=== PATIENT | female | born 1975 | race African-American/Black ===

== ENCOUNTER 2018-09-08 04:09 | Emergency (ER) | payer BC ==
[2018-09-08 05:17] VITALS: BP 137/90; PULSE 92; TEMP 98.5; BMI 28.3
[2018-09-08] MEDS ORDERED: IBUPROFEN 600 MG TABLET (FP) PO ONE ×2 (05:36→05:47)
--- NOTE | 2018-09-08 05:36 | PDOC ---
History of Present Illness - General Chief Complaint: Cold Symptoms Stated Complaint: FLU LIKE SYMPTOMS Time Seen by Provider: 09/08/18 05:26 History Source: Patient - History of Present Illness Initial Comments: 09/08/18 05:39 42 year old with nasal congestion, throat pain, bodyaches, nausea x 3 days, denies fever, chills, abdominal pain, had one episode of diarrhea no pmhx Past History - Past Medical History Allergies/Adverse Reactions: Allergies Allergy/AdvReac Type Severity Reaction Status Date / Time Penicillins Allergy Verified 09/08/18 05:17 Home Medications: Ambulatory Orders Benzocaine/Menthol [Cepacol Sore Throat Lozenge] 1 each MM QID PRN #20 lozenge 09/08/18 Benzonatate [Tessalon Pearls -] 100 mg PO TID PRN #14 capsule 09/08/18 Fluticasone Prop 0.05% Nasal [Flonase -] 1 - 2 spray NS BID #1 spray.pump Ibuprofen 600 mg PO QID PRN #20 tablet 09/08/18 Mag Hydrox/Al Hydrox/Simeth [Mylanta Suspension -] 30 ml PO Q6H PRN #1 bottle - Suicide/Smoking/Psychosocial Hx Smoking History: Never smoked Have you smoked in the past 12 months: Yes Information on smoking cessation initiated: No Hx Alcohol Use: Yes Drug/Substance Use Hx: No *Physical Exam - Vital Signs Last Vital Signs Temp Pulse Resp BP Pulse Ox 98.5 F 92 H 19 137/90 99 09/08/18 04:09 09/08/18 04:09 09/08/18 04:09 09/08/18 04:09 09/08/18 04:09 Moderate Sedation - Procedure Monitoring Vital Signs: Procedure Monitoring Vital Signs Temperature 98.5 F 09/08/18 04:09 Pulse Rate 92 H 09/08/18 04:09 Respiratory Rate 19 09/08/18 04:09 Blood Pressure 137/90 09/08/18 04:09 O2 Sat by Pulse Oximetry (%) 99 09/08/18 04:09 *DC/Admit/Observation/Transfer Diagnosis at time of Disposition: Flu-like symptoms - Discharge Dispostion Disposition: HOME Condition at time of disposition: Fair - Prescriptions Prescriptions: Benzocaine/Menthol [Cepacol Sore Throat Lozenge] 1 each MM QID PRN #20 lozenge PRN Reason: throat pain Benzonatate [Tessalon Pearls -] 100 mg PO TID PRN #14 capsule PRN Reason: Cough Fluticasone Prop 0.05% Nasal [Flonase -] 1 - 2 spray NS BID #1 spray.pump Ibuprofen 600 mg PO QID PRN #20 tablet PRN Reason: Pain Mag Hydrox/Al Hydrox/Simeth [Mylanta Suspension -] 30 ml PO Q6H PRN #1 bottle PRN Reason: Nausea - Referrals - Patient Instructions Printed Discharge Instructions: DI for Viral Upper Respiratory Infection -- Adult Additional Instructions: gargle with warm salty water. drink plenty of fluids take flonase as prescribed. follow up with your doctor as soon as possible. Additional Instructions: * Please call your personal physician to report your Emergency Department visit and to report your progress, if any. * If there is no improvement in symptoms in 2 days call your physician. * Return to the Emergency Department for any worsening symptoms. - Post Discharge Activity Forms/Work/School Notes: Back to Work
--- NOTE | 2018-09-08 05:40 | PDOC ---
*Physical Exam - Vital Signs Last Vital Signs Temp Pulse Resp BP Pulse Ox 98.5 F 92 H 19 137/90 99 09/08/18 04:09 09/08/18 04:09 09/08/18 04:09 09/08/18 04:09 09/08/18 04:09 Medical Decision Making - Medical Decision Making 09/08/18 05:40 Patient seen by the advanced practice provider under my direct supervision. Ancillary testing reviewed as necessary. I agree with plan as outlined by the advanced practice provider. *DC/Admit/Observation/Transfer Diagnosis at time of Disposition: Flu-like symptoms - Discharge Dispostion Disposition: HOME Condition at time of disposition: Fair - Prescriptions Prescriptions: Benzocaine/Menthol [Cepacol Sore Throat Lozenge] 1 each MM QID PRN #20 lozenge PRN Reason: throat pain Benzonatate [Tessalon Pearls -] 100 mg PO TID PRN #14 capsule PRN Reason: Cough Fluticasone Prop 0.05% Nasal [Flonase -] 1 - 2 spray NS BID #1 spray.pump Ibuprofen 600 mg PO QID PRN #20 tablet PRN Reason: Pain Mag Hydrox/Al Hydrox/Simeth [Mylanta Suspension -] 30 ml PO Q6H PRN #1 bottle PRN Reason: Nausea - Referrals - Patient Instructions Printed Discharge Instructions: DI for Viral Upper Respiratory Infection -- Adult Additional Instructions: gargle with warm salty water. drink plenty of fluids take flonase as prescribed. follow up with your doctor as soon as possible. Additional Instructions: * Please call your personal physician to report your Emergency Department visit and to report your progress, if any. * If there is no improvement in symptoms in 2 days call your physician. * Return to the Emergency Department for any worsening symptoms. - Post Discharge Activity Forms/Work/School Notes: Back to Work
== END 2018-09-08 07:04 | disposition home or self-care (01) ==
LOC: JER 04:09
DX: J02.9 Acute pharyngitis, unspecified (principal)
CPT/HCPCS: 87070; 87880; 99281-25

== ENCOUNTER 2018-12-16 04:34 | Emergency (ER) | payer BC ==
--- NOTE | 2018-12-16 05:28 | PDOC ---
History of Present Illness - General Stated Complaint: LUMP TO LOWER BACK,PAIN Time Seen by Provider: 12/16/18 05:25 - History of Present Illness Initial Comments: 12/16/18 06:39 The patient is a 43 year old female who denies any PMH who presents for evaluation of a mass to the right sided back. The patient notes a 1 month history of a mass to the right lower back. She states that throughout the night , she has experienced worsening pain to the location that she describes as a soreness prompting her presentation to the ED for further evaluation. She otherwise denies fevers, chills, SOB, chest pain, nausea, vomiting, abdominal pain, or changes with urination or bowel movements. She notes that the pain has improved on presentation to the ED although still present. Past History - Past Medical History Allergies/Adverse Reactions: Allergies Allergy/AdvReac Type Severity Reaction Status Date / Time Penicillins Allergy Verified 12/16/18 05:46 Home Medications: Ambulatory Orders Benzocaine/Menthol [Cepacol Sore Throat Lozenge] 1 each MM QID PRN #20 lozenge 09/08/18 Benzonatate [Tessalon Pearls -] 100 mg PO TID PRN #14 capsule 09/08/18 Fluticasone Prop 0.05% Nasal [Flonase -] 1 - 2 spray NS BID #1 spray.pump Ibuprofen 600 mg PO QID PRN #20 tablet 09/08/18 Mag Hydrox/Al Hydrox/Simeth [Mylanta Suspension -] 30 ml PO Q6H PRN #1 bottle COPD: No - Immunization History Immunization Up to Date: Yes - Suicide/Smoking/Psychosocial Hx Smoking History: Never smoked Have you smoked in the past 12 months: Yes Hx Alcohol Use: Yes Drug/Substance Use Hx: No Review of Systems - Review of Systems Comments:: 12/16/18 06:42 Constitutional: No fevers, chills, fatigue, malaise HEENT: No Rhinorrhea, nasal congestion, visual changes Cardiovascular: No chest pain, syncope, palpitations, lightheadedness Respiratory: No Cough, SOB, Hemoptysis, Gastrointestinal: No Abdominal pain, Nausea, Vomiting, Constipation, Diarrhea, Melena Genitourinary: No Dysuria, Frequency, Urgency, Hesitancy, Hematuria, Flank pain Musculoskeletal: Painful mass to the right lower back. No Myalgia, arthralgia Skin: No rashes, itching, bruising, pallor Neurologic: No Headache, Dizziness, Numbness, Weakness, or Tingling Psychiatric: No Hallucinations. No SI or HI *Physical Exam - Physical Exam Comments: 12/16/18 06:42 General Appearance: Nourished. No Apparent Distress HEENT: No Pharyngeal Erythema, Tonsillar Exudate, Tonsillar Erythema Neck: No Cervical Lymphadenopathy Respiratory/Chest: Lungs Clear, Normal Breath Sounds. No Crackles, Rales, Rhonchi, Wheezing Cardiovascular: Regular Rhythm, Regular Rate. No Murmur, Gallops, Rubs Gastrointestinal/Abdominal: Normal Bowel Sounds, Soft. No Guarding, Rebound, Tenderness Musculoskeletal: Mobile well circumscribed superficial mass to the right lower back. No CVA Tenderness Extremity: Normal Capillary Refill Integumentary: Normal Color, Dry, Warm Neurologic: Fully Oriented, Alert, Normal Mood/Affect, Normal Response, Medical Decision Making - Medical Decision Making 12/16/18 06:45 The patient is a 43 year old female who denies any PMH who presents for evaluation of a mass to the right sided back. Given the patient's history and physical exam, it is likely the patient's symptoms are due to a lipoma. However , we will obtain a CT abdomen/pelvis to evaluate further for possible etiologies. We will continue to monitor and reassess while here in the ED. 12/16/18 06:48 CT abdomen/pelvis does not demonstrate any acute process as preliminarily read by our information security officer radiologist. The patient's symptoms are likely due to a lipoma. We are comfortable discharging the patient home in stable condition. Patient and family made aware of impression and plan, return precautions discussed including but not limited to worsening pain or symptoms, fevers, or signs of infection, chest pain, respiratory distress, inability to tolerate oral intake, dehydration, syncope, or neurologic changes. The patient is to follow up with PMD and specialist as recommended within 1 week, follow up information provided and the patient will call for an appointment. The patient is to take medications as instructed for duration of time and continue with supportive care , avoid triggers and precipitants. Patient is safe for outpatient follow-up. *DC/Admit/Observation/Transfer Diagnosis at time of Disposition: Lipoma Qualifiers: Lipoma location: unspecified Qualified Code(s): D17.9 - Benign lipomatous neoplasm, unspecified - Discharge Dispostion Disposition: HOME Condition at time of disposition: Stable Decision to Admit order: No - Referrals Referrals: Conor Gomez MD [Staff Physician] - - Patient Instructions Printed Discharge Instructions: Lipoma Additional Instructions: 1) Please follow-up with your primary care doctor in the next 2-3 days. Please call tomorrow to schedule a follow up appointment. If you cannot follow up with your doctor within 1 week please return to the Emergency Department for any urgent issues. 2) Your imaging results were normal here in the ER. Your symptoms are likely due to a lipoma. You are to follow up with our Surgeon to be evaluated to have the lipoma removed. 3) If you have any worsening of symptoms or any other concerns please return to the ER immediately. Return if worsening symptoms including fevers, headache, vomiting, visual or hearing disturbances, abdominal pain, chest pain, shortness of breath, syncope, dehydration, inability to take things by mouth/vomiting, altered mental status, or worsening concerning symptoms. 4) Please continue taking your home medications as directed. - Post Discharge Activity Forms/Work/School Notes: Back to Work
--- NOTE | 2018-12-16 05:36 | PDOC ---
Attending Attestation - Resident Resident Name: Ivan Medina - ED Attending Attestation I have performed the following: I have examined & evaluated the patient, The case was reviewed & discussed with the resident, I agree w/resident's findings & plan - HPI HPI: 12/16/18 06:47 43-year-old female with full mass to her right back which she states is been there for some time. - Physicial Exam PE: 12/16/18 06:47 Agree with resident's exam - Medical Decision Making 12/16/18 06:47 43-year-old female with a painful right back mass CT scan shows no collection or discernible mass Based on exam and history findings most likely consistent with a lipoma Patient will be discharged home and will be given follow-up with general surgery
[2018-12-16 06:33] VITALS: BP 159/71; PULSE 72; TEMP 98; BMI 33.5
== END 2018-12-16 06:58 | disposition home or self-care (01) ==
LOC: JER 04:34
DX: D17.1 Benign lipomatous neoplasm of skin and subcutaneous tissue of trunk (principal)
CPT/HCPCS: 74176-TC; 99282-25

== ENCOUNTER 2019-08-28 22:06 | Emergency (ER) | payer BC ==
[2019-08-28 22:16] VITALS: BP 129/93; PULSE 85; TEMP 98.2; BMI 37.2
[2019-08-28] MEDS ORDERED: morphine CARPU-JECT 4 MG/1 ML DISP.SYRIN IVPUSH ONE (22:17)
[2019-08-28] MEDS ORDERED: ONDANSETRON 4 MG/2 ML VIAL IVPUSH ONE (22:18)
[2019-08-28] MEDS ORDERED: ACETAMINOPHEN 1000 MG/100 ML VIAL (NON FORMULARY) IVPB ONE (22:20)
[2019-08-28] MEDS ORDERED: morphine SULFATE 4 MG/ML VIAL ONE (22:35)
[2019-08-28] MEDS ORDERED: ACETAMINOPHEN INJECTION 100 ML IVPB ONE (22:36)
[2019-08-28] MEDS ORDERED: ONDANSETRON 4 MG/2 ML VIAL ONE (22:36)
[2019-08-28 22:43] LABS: BASO % 0.8 % (0-2.0); EOS % 0.9 % (0-4.5); HEMATOCRIT 43.1 % (32.4-45.2); HEMOGLOBIN 14.3 GM/dL (10.7-15.3); LYMPH % 30.4 % (8-40); MCHC 33.3 g/dl (32.0-36.0); MEAN PLT VOLUME 9.4 fl (7.5-11.1); MONO % 5.7 % (3.8-10.2); NEUT % 62.2 % (42.8-82.8); PLATELET COUNT 276 K/MM3 (134-434); RBC 4.95 M/mm3 (3.60-5.2); RDW 14.5 % (11.6-15.6); WHITE BLOOD COUNT 9.3 K/mm3 (4.0-10.0)
[2019-08-28 22:59] LABS: INR 1.06 (0.83-1.09); PROTHROMBIN TIME (PATIENT) 12.5 SEC (9.7-13.0)
--- NOTE | 2019-08-28 23:46 | PDOC ---
Attending Attestation - Resident Resident Name: KaiaWade - ED Attending Attestation I have performed the following: I have examined & evaluated the patient, The case was reviewed & discussed with the resident, I agree w/resident's findings & plan - HPI HPI: 08/29/19 00:12 Pt was in her building complex and she slipped and fell and broke her fibula Pt placed in a splint and given crutches. - Physicial Exam PE: 08/29/19 00:30 Heart and lungs clear abd soft NT ND + BS No clubbing cyanosis edema right lower leg tenderness at the ankle. No bruising. - Medical Decision Making 08/29/19 00:10 CBC and INR normal chem hemolyzed and canceled; no need to repeat it. Pt is feeling better; short leg splint applied. Pt is alert and awake. SHe is in pain and as a result she has high BP. She was given morphine and she felt better; now it is wearing off . Pt will be given 2 percocet and she will be sent home with 12pills. 08/29/19 00:31 Pt will follow with Ortho. Heart Score/ECG Review - ECG Intrepretation Rhythm: Regular Rhythm - [place]: Normal - P and MS Prominent R with upright T in V1 (true posterior DE): No Delta Wave(s) Present: No WPW: No - QRS Poor R Wave Progression: No Q Wave Present: No - ST and T Early Repolarization: No Non Specific ST-T Wave changes: No Flattened T Waves: Yes Prolonged Q-T Interval: No - ECG Impressions Normal ECG: Yes Non-specific ST Elevation: No Ischemic Changes: Yes (flat lateral Ts)
--- NOTE | 2019-08-29 00:08 | PDOC ---
History of Present Illness - General Chief Complaint: Injury Stated Complaint: ANKLE INJURY Time Seen by Provider: 08/28/19 22:30 History Source: Patient Exam Limitations: No Limitations - History of Present Illness Initial Comments: 08/29/19 00:08 43 yo female presents to the ED after a slip and fall with R ankle deformity and pain. Pt states her ankle completely reversed and heard a snap with sudden onset pain and swelling. Pt unable to ambulate/bare weight on the foot. Denies sensory loss or inability to move the foot or ankle. Denies any other pain or hitting her head or LOC. No current medical complaints other than pain in the right ankle Past History - Past Medical History Allergies/Adverse Reactions: Allergies Allergy/AdvReac Type Severity Reaction Status Date / Time Penicillins Allergy Verified 08/28/19 22:14 Home Medications: Ambulatory Orders Benzocaine/Menthol [Cepacol Sore Throat Lozenge] 1 each MM QID PRN #20 lozenge 09/08/18 Benzonatate [Tessalon Pearls -] 100 mg PO TID PRN #14 capsule 09/08/18 Fluticasone Prop 0.05% Nasal [Flonase -] 1 - 2 spray NS BID #1 spray.pump Ibuprofen 600 mg PO QID PRN #20 tablet 09/08/18 Mag Hydrox/Al Hydrox/Simeth [Mylanta Suspension -] 30 ml PO Q6H PRN #1 bottle Oxycodone HCl/Acetaminophen [Percocet 5-325 mg Tablet] 1 tab PO Q6H #16 tablet MDD 4 08/29/19 COPD: No - Surgical History Gastric Stapling: Yes (2016) - Immunization History Immunization Up to Date: Yes - Psycho Social/Smoking Cessation Hx Smoking History: Never smoked Have you smoked in the past 12 months: Yes Hx Alcohol Use: Yes Drug/Substance Use Hx: No Review of Systems - Review of Systems Constitutional: No: Chills, Fever HEENTM: No: Blurred Vision, Double Vision Respiratory: No: Shortness of Breath Cardiac (ROS): No: Chest Pain, Edema ABD/GI: No: Nausea, Vomiting : No: Flank Pain Musculoskeletal: Yes: Other (right ankle pain). No: Back Pain Integumentary: No: Change in Color, Pallor Neurological: No: Headache, Weakness *Physical Exam - Vital Signs Last Vital Signs Temp Pulse Resp BP Pulse Ox 98.2 F 85 20 129/93 100 08/28/19 22:14 08/28/19 22:14 08/28/19 22:14 08/28/19 22:14 08/28/19 22:14 - Physical Exam General Appearance: Yes: Nourished, Appropriately Dressed, Apparent Distress ( tearful in pain) HEENT: positive: EOMI Neck: positive: Supple. negative: Rigid Respiratory/Chest: positive: Lungs Clear, Normal Breath Sounds. negative: Respiratory Distress, Accessory Muscle Use, Crackles, Rales, Rhonchi, Stridor, Wheezing Cardiovascular: positive: Regular Rhythm, Regular Rate, S1, S2. negative: Edema , JVD, Murmur Vascular Pulses: Dorsalis-Pedis (R): 4+, Doralis-Pedis (L): 4+ Gastrointestinal/Abdominal: positive: Flat, Soft. negative: Pulsatile Mass, Protuberent, Distended, Guarding, Rebound, Tenderness Musculoskeletal: negative: CVA Tenderness Extremity: positive: Normal Capillary Refill, Swelling, Other (right ankle swelling. sensation and pulses intact. No tenderness to prox fibula or tibia). negative: Normal Range of Motion Integumentary: positive: Normal Color, Dry, Warm Neurologic: positive: Fully Oriented, Alert, Normal Mood/Affect, Normal Response ED Treatment Course - LABORATORY CBC & Chemistry Diagram: 08/28/19 22:30 08/28/19 22:30 - ADDITIONAL ORDERS Additional order review: Laboratory Results 08/28/19 08/28/19 08/28/19 22:30 22:30 22:30 PT with INR 12.50 INR 1.06 Sodium Cancelled Potassium Cancelled Chloride Cancelled Carbon Dioxide Cancelled Anion Gap Cancelled BUN Cancelled Creatinine Cancelled Est GFR (CKD-EPI)AfAm Cancelled Est GFR (CKD-EPI)NonAf Cancelled Random Glucose Cancelled Calcium Cancelled Total Bilirubin Cancelled AST Cancelled ALT Cancelled Alkaline Phosphatase Cancelled Total Protein Cancelled Albumin Cancelled Blood Type O POSITIVE Antibody Screen Negative 08/28/19 22:30 RBC 4.95 MCV 87.0 MCHC 33.3 RDW 14.5 MPV 9.4 Neutrophils % 62.2 Lymphocytes % 30.4 Monocytes % 5.7 Eosinophils % 0.9 Basophils % 0.8 - Medications Given in the ED: ED Medications Discontinued Medications Generic Name Dose Route Start Last Admin Trade Name Byron PRN Reason Stop Dose Admin Acetaminophen 1,000 mg 08/28/19 22:20 08/28/19 22:52 Ofirmev Injection - IVPB 08/28/19 22:21 1,000 mg ONCE ONE Administration Morphine Sulfate 4 mg 08/28/19 22:17 08/28/19 22:51 Morphine Injection - IVPUSH 08/28/19 22:18 4 mg ONCE ONE Administration Ondansetron HCl 4 mg 08/28/19 22:18 08/28/19 22:52 Zofran Injection IVPUSH 08/28/19 22:19 4 mg NOW ONE Administration Medical Decision Making - Medical Decision Making 08/29/19 00:32 Pt has no proximal fibular or tibial tenderness and does not require prox images fibular ankle fracture noted, discussed case with special collections librarian Ortho, Dr. Do who reviewed imaging. States pt can follow up Thursday or Thu for the fracture, can be splinted and will be non weight baring using crutches until office visit. pt given morphine and pain improved, will give percocet Discharge - Discharge Information Problems reviewed: Yes Clinical Impression/Diagnosis: Ankle fracture Condition: Stable Disposition: HOME - Admission No - Follow up/Referral Referrals: Carroll Do MD [Staff Physician] - - Patient Discharge Instructions Patient Printed Discharge Instructions: DI for Ankle Fracture Additional Instructions: Please call Dr. Do office tomorrow morning and go to clinic for follow up. Take the pain medication called percocet as prescribed and only for severe pain. Do not drive while using this medication. Return to the ER for new or concerning symptoms including but not limited to: loss of strength or sensation to the right foot. Use the crutches provided to you and do not bare weight on your ankle until seeing the Orthopedic doctor. Thank you - Post Discharge Activity
--- NOTE | 2019-08-29 09:57 | EKG ---
Test Reason : Blood Pressure : / mmHG Vent. Rate : 076 BPM Atrial Rate : 076 BPM P-R Int : 136 ms QRS Dur : 076 ms QT Int : 386 ms P-R-T Axes : 068 066 020 degrees QTc Int : 434 ms NORMAL SINUS RHYTHM WITH SINUS ARRHYTHMIA NONSPECIFIC T WAVE ABNORMALITY ABNORMAL ECG NO PREVIOUS ECGS AVAILABLE Confirmed by CHANTEL HALL, PRETTY ([id number]) on 08/29/2019 9:56:35 AM Referred By: Confirmed By:PRETTY GOLDEN MD
== END 2019-08-29 01:23 | disposition home or self-care (01) ==
LOC: JER 22:06
PROC: 2W3QX1Z Immobilization of Right Lower Leg using Splint (ICD-10-PCS; principal; 2019-08-28)
DX: S82.831A Other fracture of upper and lower end of right fibula, initial encounter for closed fracture (principal); W00.2XXA Other fall from one level to another due to ice and snow, initial encounter; Y93.01 Activity, walking, marching and hiking; Y92.414 Local residential or business street as the place of occurrence of the external cause; Y99.8 Other external cause status
CPT/HCPCS: 36415; 73610-TC-RT-FY; 73630-TC-RT-FY; 85025; 85610; 86850; 86900; 86901; 93005; 93010; 99283-25; J0131

== ENCOUNTER 2019-09-03 00:11 | Emergency (ER) | payer BC ==
[2019-09-03 00:19] VITALS: BMI 31.3
--- NOTE | 2019-09-03 01:06 | PDOC ---
History of Present Illness - General Chief Complaint: Lightheaded Stated Complaint: DIZZINESS Time Seen by Provider: 09/03/19 01:04 - History of Present Illness Initial Comments: 09/03/19 04:04 43 yo f no significant medical hx presents to ED with lightheadedness. has recently been taking percocets for pain after recent fracture, and reports she may have taken too many. She denies any fevers, chills, shortness of breath or chest pain. 10/05/19 12:22 Past History - Past Medical History Allergies/Adverse Reactions: Allergies Allergy/AdvReac Type Severity Reaction Status Date / Time Penicillins Allergy Verified 10/03/19 11:26 Home Medications: Ambulatory Orders Ibuprofen 600 mg PO QID PRN #20 tablet 09/08/18 Oxycodone HCl/Acetaminophen [Percocet 5-325 mg Tablet] 1 tab PO Q6H #16 tablet MDD 4 08/29/19 Meclizine HCl [Antivert -] 25 mg PO QID #28 tablet 09/03/19 Anemia: No Asthma: No Cancer: No Cardiac Disorders: No CVA: No COPD: No CHF: No Dementia: No Diabetes: No GI Disorders: No Disorders: No HTN: No Hypercholesterolemia: No Liver Disease: No Seizures: No Thyroid Disease: No - Surgical History Abdominal Surgery: Yes (2016 Gastric Sleeve) Appendectomy: No Cardiac Surgery: No Cholecystectomy: No Gastric Stapling: Yes (2016) Lung Surgery: No Neurologic Surgery: No Orthopedic Surgery: No - Immunization History Immunization Up to Date: Yes - Psycho Social/Smoking Cessation Hx Smoking History: Never smoked Have you smoked in the past 12 months: No Information on smoking cessation initiated: No Hx Alcohol Use: No Drug/Substance Use Hx: No Substance Use Type: Alcohol Hx Substance Use Treatment: No Review of Systems - Review of Systems Constitutional: No: Chills, Fever HEENTM: No: Eye Pain, Blurred Vision Respiratory: No: Cough, Shortness of Breath Cardiac (ROS): No: Chest Pain, Syncope ABD/GI: No: Nausea, Vomiting : No: Burning, Dysuria Musculoskeletal: Yes: Joint Pain. No: Back Pain Integumentary: No: Bruising, Change in Color Neurological: No: Headache, Numbness, Seizure, Tingling *Physical Exam - Vital Signs Last Vital Signs Temp Pulse Resp BP Pulse Ox 98.0 F 88 20 187/91 H 96 09/03/19 00:17 09/03/19 00:17 09/03/19 00:17 09/03/19 00:17 09/03/19 00:17 - Physical Exam 09/03/19 02:09 GENERAL: Awake, alert, and fully oriented, in no acute distress HEAD: No signs of trauma, normocephalic, atraumatic EYES: PERRLA, EOMI, sclera anicteric, conjunctiva clear ENT: Auricles normal inspection, hearing grossly normal, nares patent, oropharynx clear without exudates. Moist mucosa NECK: Normal ROM, supple, no lymphadenopathy, JVD, or masses LUNGS: No distress, speaks full sentences, clear to auscultation bilaterally HEART: Regular rate and rhythm, normal S1 and S2, no murmurs, rubs or gallops, peripheral pulses normal and equal bilaterally. ABDOMEN: Soft, nontender, normoactive bowel sounds. No guarding, no rebound. No masses EXTREMITIES : cast on right lower extremity. tib fib fracture. 2/5 strength RLE. 5/5 LLE. sensation intact. NEUROLOGICAL: Cranial nerves II through XII grossly intact. Normal speech, no focal sensorimotor deficits SKIN: Warm, Dry, normal turgor, no rashes or lesions noted ED Treatment Course - LABORATORY CBC & Chemistry Diagram: 09/03/19 01:27 09/03/19 01:27 Medical Decision Making - Medical Decision Making 09/03/19 02:08 Workup cbc, cmp Meds: 1L NS, meclizine head ct w/o contrast. 09/03/19 04:[address] w/o contrast. right maxilarry sinusitis no acute intracranial pathology Discharge - Discharge Information Problems reviewed: Yes Clinical Impression/Diagnosis: Vertigo Condition: Stable Disposition: HOME - Admission No - Additional Discharge Information Prescriptions: Meclizine HCl [Antivert -] 25 mg PO QID #28 tablet - Follow up/Referral Referrals: Bandar Christianson MD [Staff Physician] - Joel Horn MD [Staff Physician] - - Patient Discharge Instructions Patient Printed Discharge Instructions: DI for Vertigo Additional Instructions: You sere seen in the ER for vertigo and dizziness all your lab work was normal you have been given a copy of your head CT results and you have been prescribed medications. Take as directed Make sure to inform your doctor that you were in the ER and inform your surgical team RETURN TO THE ER -if you have fevers, chills -worsening symptoms from today. - - Post Discharge Activity
[2019-09-03] MEDS ORDERED: SODIUM CHLORIDE 0.9% 500 ML INFUS.BAG IV ONE (01:08)
[2019-09-03] MEDS ORDERED: MECLIZINE HCL 25 MG TABLET (FP) PO ONE (01:52)
[2019-09-03] MEDS ORDERED: MECLIZINE HCL 25 MG TABLET (FP) ONE (01:56)
[2019-09-03 02:03] LABS: BASO % 0.8 % (0-2.0); EOS % 1.8 % (0-4.5); HEMATOCRIT 40.3 % (32.4-45.2); HEMOGLOBIN 13.5 GM/dL (10.7-15.3); MCHC 33.5 g/dl (32.0-36.0); MEAN CELL VOLUME 86.8 fl (80-96); MEAN PLT VOLUME 10.2 fl (7.5-11.1); MONO % 6.4 % (3.8-10.2); PLATELET COUNT 309 K/MM3 (134-434); RBC 4.65 M/mm3 (3.60-5.2); RDW 14.1 % (11.6-15.6); WHITE BLOOD COUNT 6.7 K/mm3 (4.0-10.0)
[2019-09-03 03:01] LABS: ALBUMIN 3.4 g/dl (3.4-5.0); ALK PHOS 74 U/L (45-117); ANION GAP 6 MMOL/L (8-16); BILIRUBIN,TOTAL 0.4 mg/dL (0.2-1); BLOOD UREA NITROGEN 13.5 mg/dL (7-18); CALCIUM 9.2 mg/dL (8.5-10.1); CHLORIDE 111 mmol/L (98-107); CO2 23 mmol/L (21-32); CREATININE 0.6 mg/dL (0.55-1.3); GLUCOSE,RANDOM 94 mg/dL (74-106); POTASSIUM 4.2 mmol/L (3.5-5.1); SGOT/AST 29 U/L (15-37); SGPT/ALT 38 U/L (13-61); SODIUM 140 mmol/L (136-145); TOT PROT 7.3 g/dl (6.4-8.2)
--- NOTE | 2019-09-03 03:01 | PDOC ---
Attending Attestation - Resident Resident Name: Bienvenido Joy - ED Attending Attestation I have performed the following: I have examined & evaluated the patient, The case was reviewed & discussed with the resident, I agree w/resident's findings & plan - HPI HPI: 09/03/19 04:58 Pt comes with lightheadedness Pt comes with dizziness and lighthededness. SHe has been eating normally and not vomiting. She has no fever and no chills. She states that her broken fibula hurts a lot and that she has been taking her percocets too quickly and in higher doses than she ought to be. - Physicial Exam PE: 09/03/19 21:00 Normal exam. Pt has no gross focal deficits Heart normal sinus RRR Lungs CTAB Abd soft NT ND+ BS No flank pain ext no edema Afebrile HEENT normal - Medical Decision Making 09/03/19 03:22 All labs are normal 09/03/19 04:[address] scan is normal 09/03/19 04:58 Patient Name: JORGE ALBERTO PEREZ THIS IS A PRELIMINARY REPORT FROM [facility] DATE OF SERVICE: 2019-09-03 02:21:53 IMAGES: 225 EXAM: HEAD CT WITHOUT CONTRAST HISTORY: Dizziness COMPARISON: None. FINDINGS: The ventricular system is midline and nondilated. The sulcal pattern is normal for the patient's age. There is no bleed, mass, extra-axial fluid collection or mass effect. No skull fracture or skull lesion is identified. Plan actually sinus air-fluid levels suggest sinusitis. The other visualized paranasal sinuses and mastoid air cells are clear. IMPRESSION: Possible right maxillary sinusitis. No acute intracranial pathology 09/03/19 21:04 Stable to go home Heart Score/ECG Review - ECG Intrepretation Rhythm: Regular Rhythm - [place]: Normal - P and [place] Delta Wave(s) Present: No WPW: No - QRS Poor R Wave Progression: No Q Wave Present: No - ST and T Early Repolarization: No Non Specific ST-T Wave changes: No Flattened T Waves: No Prolonged Q-T Interval: No - ECG Impressions Normal ECG: Yes Non-specific ST Elevation: No Ischemic Changes: No Bradycardia: No
[2019-09-03] MEDS ORDERED: LABETALOL HCL 5 MG/1 ML (100MG/20 ML VIAL) IVPUSH ONE (03:41)
[2019-09-03 08:16] VITALS: BP 166/76; PULSE 88; TEMP 98
--- NOTE | 2019-09-03 10:43 | EKG ---
Test Reason : Blood Pressure : / mmHG Vent. Rate : 072 BPM Atrial Rate : 072 BPM P-R Int : 172 ms QRS Dur : 090 ms QT Int : 412 ms P-R-T Axes : 054 060 039 degrees QTc Int : 451 ms NORMAL SINUS RHYTHM WHEN COMPARED WITH ECG OF 29-AUG-2019 00:17, NO SIGNIFICANT CHANGE WAS FOUND Confirmed by LOLIS CASTILLO MD ([id number]) on 09/03/2019 10:43:29 AM Referred By: Confirmed By:LOLIS CASTILLO MD
== END 2019-09-03 08:05 | disposition home or self-care (01) ==
LOC: JER 00:11
PROC: 3E033GC Introduction of Other Therapeutic Substance into Peripheral Vein, Percutaneous Approach (ICD-10-PCS; principal; 2019-09-03)
DX: R42 Dizziness and giddiness (principal); J32.0 Chronic maxillary sinusitis; R03.0 Elevated blood-pressure reading, without diagnosis of hypertension; Z88.0 Allergy status to penicillin
CPT/HCPCS: 36415; 70450-TC; 80053; 82550; 82553; 84484; 85025; 93005; 93010; 99284-25

== ENCOUNTER 2019-09-08 07:21 | Day surgery (SDC) | payer BC ==
--- NOTE | 2019-09-08 07:59 | OP ---
Operative Note - Note: Operative Date: 09/08/19 Pre-Operative Diagnosis: Right ankle fracture Operation: Right ankle open reduction internal fixation Implants: Arthrex 8-hole distal fibular plate, 1/3 tubular width with a lag screw outside plate 3 mm, two 3.5mm locking screws and the remaining 3.5mm nonlocking screws in the plate, arthrex tightrope x2 Post-Operative Diagnosis: Same as Pre-op Surgeon: Carroll Do Rail Transportation Tabeler: Octavia Thorne Anesthesia: Spinal Operative Report Dictated: Yes
[2019-09-08 08:10] VITALS: BMI 34.0
[2019-09-08] MEDS ORDERED: BUPIVACAINE HCL/PF 0.5% (5 MG/ML) 30 ML VIAL IJ ONE (08:16)
[2019-09-08] MEDS ORDERED: DEXAMETHASONE SOD PHOSPHATE/PF 10 MG/ML SDV ONE (08:16)
[2019-09-08] MEDS ORDERED: MIDAZOLAM HCL 2 MG/2 ML SINGLE DOSE VIAL ONE ×2 (08:16→08:52)
[2019-09-08] MEDS ORDERED: BUPIVACAINE HCL/PF 0.5% (5MG/ML) 10 ML VIAL ONE (08:47)
[2019-09-08] MEDS ORDERED: ceFAZolin SODIUM 1 GM VIAL ONE (09:03)
[2019-09-08] MEDS ORDERED: PROPOFOL 20 ML ONE ×3 (09:29)
[2019-09-08] MEDS ORDERED: ONDANSETRON 4 MG/2 ML VIAL IVPUSH PRN (10:21)
[2019-09-08] MEDS ORDERED: LACTATED RINGERS SOLUTION 1,000 ML IV SCH (10:30)
[2019-09-08 12:11] VITALS: TEMP 98
--- NOTE | 2019-09-08 12:50 | OP ---
DATE OF OPERATION: 09/08/2019 PREOPERATIVE DIAGNOSIS: Right ankle and syndesmotic injury. POSTOPERATIVE DIAGNOSIS: Right ankle and syndesmotic injury. PROCEDURE: Right ankle open reduction internal fixation. SURGEON: Carroll Draper MD FIRE PROTECTION INSPECTOR: Octavia Thorne, physician assurance assistant, whose skilled full assistance was necessary for the safe and timely performance of this procedure. Ms. Thorne was able to provide limb positioning, retraction, assist in fracture reduction as well as the insertion of orthopaedic fixation hardware. ANESTHESIA: Regional plus spinal. POSTOPERATIVE CONDITION: Stable. COMPLICATIONS: None. IMPLANTS: Arthrex 8-hole distal fibular plate, 1/3 tubular width with a lag screw outside the plate 3 mm, two 3.5-mm locking screws, and the remaining 3.5-mm nonlocking screws in the plate. There are also 2 Arthrex TightRopes. INDICATIONS: This is a pleasant woman who suffered a trip and fall. She was found to have a widely displaced mortis and displaced distal fibular fracture. Treatment options were discussed including nonoperative versus operative management. Operative management was highly recommended as a closed reduction of the syndesmosis would be untenable. Operative risks were reviewed in detail including bleeding, infection, neurovascular injury, need for further surgery, postoperative pain and stiffness, nonunion, malunion, hardware failure or cutout. We discussed medical risks such as heart attack, stroke, DVT, PE, and . I addressed the use of perioperative antibiotic and DVT prophylaxis. I addressed all of the patient's questions and concerns. She voiced understanding and elected to proceed. DESCRIPTION OF PROCEDURE: Patient was brought to the operating room where she was placed supine on the operating room table after administration of spinal anesthetic. Regional anesthetic had been applied in the preoperative holding area. The right lower extremity was then prepped and draped in the usual sterile fashion. A preoperative dose of antibiotics was given, and the usual time-out procedure was performed. The incision was now planned out along the fibula. This was carried down through skin through subcutaneous tissue. Blunt spreading was used to expose the fascia. The fascia was then split in line with the fibula exposing the fracture site. Subperiosteal elevation was used to expose an adequate amount of fibula. Fracture site was then debrided of any loose debris. A fracture reduction forceps was then placed across the fracture site bringing it into anatomic reduction. The fracture was then fixated utilizing a 3-0 lag screw placed in standard fashion anterior to posterior. The clamp was then removed, and the fracture was stable. An 8-hole plate was then chosen and affixed to the lateral aspect of the fibula. This was affixed proximally using the oblong hole at first utilizing a 3.5-mm screw. Two additional nonlocking proximal screws were placed. Two locking screws were placed distally as 2 TightRopes were planned to be placed . The construct was examined visually and fluoroscopically prior to TightRope placement and both fracture reduction, and hardware placement was satisfactory. The TightRopes were now drilled utilizing a 3.8-mm drill bit in parallel fashion across the fibula, across the tibia, and parallel to the mortis at the level of the scar more distally. Both TightRopes were then placed and then toggled tight reducing the syndesmosis anatomically. The excess sutures were now cut. The wound was irrigated. The tissue was approximated using 0 Vicryl. The subcutaneous tissue was approximated using 2-0 Vicryl. The skin was closed using 3-0 nylon. Sterile dressings were placed. The patient was placed into a well-padded short-leg cast. She was transferred to recovery room in stable condition. CARROLL DRAPER M.D. [id number]
[2019-09-08 13:48] VITALS: BP 146/92; PULSE 85
== END 2019-09-08 13:35 | disposition home or self-care (01) ==
LOC: FASU 07:21
PROVIDERS: ATTEND Orthopaedic Surgery Sports Medicine
PROC: 0SSF0ZZ Reposition Right Ankle Joint, Open Approach (ICD-10-PCS; 2019-09-08)
PROC: 0QSJ04Z Reposition Right Fibula with Internal Fixation Device, Open Approach (ICD-10-PCS; principal; 2019-09-08 09:38)
DX: S82.61XA Displaced fracture of lateral malleolus of right fibula, initial encounter for closed fracture (principal); S93.431A Sprain of tibiofibular ligament of right ankle, initial encounter; W01.0XXA Fall on same level from slipping, tripping and stumbling without subsequent striking against object, initial encounter; Y93.9 Activity, unspecified; Y92.9 Unspecified place or not applicable
CPT/HCPCS: 27792; 27829; C1713; 73610-TC-RT-FY; 94760

== ENCOUNTER 2019-10-03 11:02 | Emergency (ER) | payer BC ==
[2019-10-03 11:26] VITALS: TEMP 98; BMI 37.8
[2019-10-03] MEDS ORDERED: oxyCODONE HCL 5 MG TABLET PO ONE (12:31)
[2019-10-03] MEDS ORDERED: oxyCODONE HCL 5 MG TABLET ONE (12:35)
--- NOTE | 2019-10-03 13:18 | PDOC ---
History of Present Illness - General Chief Complaint: Injury Stated Complaint: FALL Time Seen by Provider: 10/03/19 12:03 - History of Present Illness Initial Comments: 10/03/19 13:15 43-year-old female without comorbidities about 3 or 4 weeks status post right ankle open reduction internal fixation with tight rope placement presents for evaluation after a fall. Patient states she was using her knee scooter was bumped accidentally and fell injuring her right ankle her operative ankle. She complains of pain about the lateral aspect of the right ankle. 10/03/19 13:15 She did not hit her head. There is no post injury nausea vomiting or visual changes. Past History - Past Medical History Allergies/Adverse Reactions: Allergies Allergy/AdvReac Type Severity Reaction Status Date / Time Penicillins Allergy Verified 10/03/19 11:26 Home Medications: Ambulatory Orders Ibuprofen 600 mg PO QID PRN #20 tablet 09/08/18 Oxycodone HCl/Acetaminophen [Percocet 5-325 mg Tablet] 1 tab PO Q6H #16 tablet MDD 4 08/29/19 Meclizine HCl [Antivert -] 25 mg PO QID #28 tablet 09/03/19 Anemia: No Asthma: No Cancer: No Cardiac Disorders: No CVA: No COPD: No CHF: No Dementia: No Diabetes: No GI Disorders: No Disorders: No HTN: No Hypercholesterolemia: No Liver Disease: No Seizures: No Thyroid Disease: No - Surgical History Abdominal Surgery: Yes (2016 Gastric Sleeve) Appendectomy: No Cardiac Surgery: No Cholecystectomy: No Gastric Stapling: Yes (2016) Lung Surgery: No Neurologic Surgery: No Orthopedic Surgery: No - Immunization History Immunization Up to Date: Yes - Psycho Social/Smoking Cessation Hx Smoking History: Never smoked Have you smoked in the past 12 months: No Hx Alcohol Use: Yes (OCCASIONAL SOCIAL) Drug/Substance Use Hx: No Substance Use Type: Alcohol Hx Substance Use Treatment: No Review of Systems - Review of Systems Musculoskeletal: Yes: Joint Pain *Physical Exam - Vital Signs Last Vital Signs Temp Pulse Resp BP Pulse Ox 98 F 93 H 18 167/104 H 99 10/03/19 11:23 10/03/19 11:23 10/03/19 11:23 10/03/19 11:23 10/03/19 11:23 - Physical Exam 02/24/20 13:16 Surgical incision at the lateral aspect of the right ankle is clean dry and intact Steri-Strips in place. Normal skin color and temperature decreased range of motion without gross sensorimotor deficits neurovascular intact. No deformity ED Treatment Course - RADIOLOGY Radiology Studies Ordered: Category Date Time Status ANKLE-RIGHT [RAD] Stat Radiology 10/03/19 12:10 Completed - Medications Given in the ED: ED Medications Discontinued Medications Generic Name Dose Route Start Last Admin Trade Name Freq PRN Reason Stop Dose Admin Oxycodone HCl 10 mg 10/03/19 12:31 10/03/19 12:37 Roxicodone - PO 10/03/19 12:32 10 mg ONCE ONE Administration Medical Decision Making - Medical Decision Making 10/03/19 13:16 X-rays of the right ankle show a displaced butterfly fragment. I do not know if this was pre-existing postoperatively or this occurred after her fall today. There are no other acute fractures. There appears to be a lag screw in the area of the butterfly fragment distally. Patient was rewrapped kept nonweightbearing and told to follow-up with her operative orthopedic surgeon. Discharge - Discharge Information Problems reviewed: Yes Clinical Impression/Diagnosis: Ankle pain Condition: Stable Disposition: HOME - Admission No - Follow up/Referral Referrals: Carroll Do MD [Staff Physician] - - Patient Discharge Instructions Additional Instructions: Remain nonweightbearing. Without fail follow-up with orthopedic surgery in 2 to 3 days for further evaluation and treatment options. You may come out of the cam boot for hygiene leaving the skin open to air. Please wear the cam boot as directed by your orthopedic surgeon. But again please allow your skin to breathe. - Post Discharge Activity
[2019-10-03 13:34] VITALS: BP 161/98; PULSE 80
== END 2019-10-03 14:08 | disposition home or self-care (01) ==
LOC: JERFT 11:02
DX: S99.811A Other specified injuries of right ankle, initial encounter (principal); M25.571 Pain in right ankle and joints of right foot; V00.141A Fall from scooter (nonmotorized), initial encounter; Y93.89 Activity, other specified; Y92.89 Other specified places as the place of occurrence of the external cause; Y99.8 Other external cause status; Z87.81 Personal history of (healed) traumatic fracture; Z88.0 Allergy status to penicillin
CPT/HCPCS: 73610-TC-RT-FY; 99283-25

== ENCOUNTER 2021-06-06 13:16 | Emergency (ER) | payer BC, OTHER ==
[2021-06-06 13:48] VITALS: BMI 62.8
[2021-06-06] MEDS ORDERED: SODIUM CHLORIDE 1,000 ML IV ONE (14:23)
[2021-06-06 15:24] LABS: URINE APPEARANCE CLEAR; URINE BILIRUBIN NEGATIVE (NEGATIVE); URINE COLOR YELLOW; URINE GLUCOSE (UA) NEGATIVE (NEGATIVE); URINE KETONE NEGATIVE (NEGATIVE); URINE LEUK ESTERASE NEGATIVE (NEGATIVE); URINE NITRITE NEGATIVE (NEGATIVE); URINE PROTEIN NEGATIVE (NEGATIVE); URINE UROBILINOGEN 0.2 mg/dL (0.2-1.0)
[2021-06-06 15:27] LABS: HCG,QUALITATIVE URINE Negative
[2021-06-06 15:29] LABS: BASO % 0.9 % (0-2.0); EOS % 1.5 % (0-4.5); HEMATOCRIT 43.8 % (32.4-45.2); HEMOGLOBIN 14.9 GM/dL (10.7-15.3); LYMPH % 57.6 % (8-40); MCH 30.2 pg (25.7-33.7); MCHC 33.9 g/dl (32.0-36.0); MEAN CELL VOLUME 89.1 fl (80-96); MEAN PLT VOLUME 10.4 fl (7.5-11.1); MONO % 7.9 % (3.8-10.2); NEUT % 32.1 % (42.8-82.8); PLATELET COUNT 260 10^3/uL (134-434); RBC 4.92 M/mm3 (3.60-5.2); RDW 14.5 % (11.6-15.6); WHITE BLOOD COUNT 5.7 K/mm3 (4.0-10.0)
[2021-06-06 15:58] LABS: CHLORIDE 105 mmol/L (98-107); SODIUM 139 mmol/L (136-145)
[2021-06-06 16:01] LABS: ANION GAP 9 MMOL/L (8-16); CALCIUM 9.3 mg/dL (8.5-10.1); CO2 25 mmol/L (21-32)
[2021-06-06 16:02] LABS: BLOOD UREA NITROGEN 10.2 mg/dL (7-18); GLUCOSE,RANDOM 69 mg/dL (74-106)
[2021-06-06 16:05] LABS: CREATININE 0.7 mg/dL (0.55-1.3); SGOT/AST 28 U/L (15-37); SGPT/ALT 56 U/L (13-61)
[2021-06-06 16:06] LABS: BILIRUBIN,TOTAL 0.5 mg/dL (0.2-1); TOT PROT 8.3 g/dl (6.4-8.2)
[2021-06-06 16:07] LABS: ALK PHOS 104 U/L (45-117)
[2021-06-06 17:17] VITALS: BP 190/89; PULSE 89; TEMP 98.3
== END 2021-06-06 18:50 | disposition home or self-care (01) ==
LOC: JER 13:16
PROC: 3E0337Z Introduction of Electrolytic and Water Balance Substance into Peripheral Vein, Percutaneous Approach (ICD-10-PCS; principal; 2021-06-06)
DX: R42 Dizziness and giddiness (principal)
CPT/HCPCS: 36415; 70450-TC; 80053; 81003; 82550; 82553; 84484; 84703; 85025; 87086; 93005; 93010; 99285-25

== ENCOUNTER 2022-02-10 06:14 | Emergency (ER) | payer OTHER ==
[2022-02-10 06:33] VITALS: BP 152/83; PULSE 69; TEMP 98.1; BMI 27.4
[2022-02-10] MEDS ORDERED: IBUPROFEN 400 MG TABLET (FP) PO ONE ×2 (07:47→07:50)
[2022-02-10] MEDS ORDERED: METHOCARBAMOL 500 MG TABLET PO ONE (07:47)
[2022-02-10] MEDS ORDERED: METHOCARBAMOL 500 MG TABLET ONE (07:50)
== END 2022-02-10 08:01 | disposition home or self-care (01) ==
LOC: JER 06:14
DX: S39.012A Strain of muscle, fascia and tendon of lower back, initial encounter (principal); X50.0XXA Overexertion from strenuous movement or load, initial encounter
CPT/HCPCS: 99283-25

== ENCOUNTER 2022-08-21 08:05 | Emergency (ER) | payer OTHER ==
[2022-08-21 08:19] VITALS: RESP 18; BMI 28.6
[2022-08-21 11:21] LABS: BASO % 1.1 % (0-2.0); EOS % 1.7 % (0-4.5); HEMOGLOBIN 13.7 GM/dL (10.7-15.3); LYMPH % 54.4 % (8-40); MCH 29.3 pg (25.7-33.7); MCHC 33.3 g/dl (32.0-36.0); MEAN CELL VOLUME 88.1 fl (80-96); MEAN PLT VOLUME 10.7 fl (7.5-11.1); MONO % 7.8 % (3.8-10.2); PLATELET COUNT 221 10^3/uL (134-434); RBC 4.65 M/mm3 (3.60-5.2); RDW 13.6 % (11.6-15.6); WHITE BLOOD COUNT 4.6 K/mm3 (4.0-10.0)
[2022-08-21 11:43] LABS: CALCIUM 8.6 mg/dL (8.5-10.1)
[2022-08-21 11:44] LABS: ALBUMIN 3.7 g/dl (3.4-5.0); BLOOD UREA NITROGEN 10.7 mg/dL (7-18); MAGNESIUM 1.8 mg/dL (1.8-2.4)
[2022-08-21 11:46] LABS: CREATININE 0.6 mg/dL (0.55-1.3)
[2022-08-21 11:48] LABS: BILIRUBIN,TOTAL 0.6 mg/dL (0.2-1); TOT PROT 7.2 g/dl (6.4-8.2)
[2022-08-21 12:16] VITALS: BP 154/80; PULSE 73; TEMP 97.9
[2022-08-21 13:35] LABS: PH,URINE 5.5 (5.0-8.0); URINE APPEARANCE CLEAR; URINE BILIRUBIN NEGATIVE (NEGATIVE); URINE COLOR YELLOW; URINE GLUCOSE (UA) NEGATIVE (NEGATIVE); URINE KETONE 1+ (NEGATIVE); URINE LEUK ESTERASE NEGATIVE (NEGATIVE); URINE NITRITE NEGATIVE (NEGATIVE); URINE PROTEIN NEGATIVE (NEGATIVE); URINE UROBILINOGEN 0.2 mg/dL (0.2-1.0)
== END 2022-08-21 14:58 | disposition home or self-care (01) ==
LOC: JER 08:05
DX: R51.9 Headache, unspecified (principal); R42 Dizziness and giddiness; I10 Essential (primary) hypertension
CPT/HCPCS: 36415; 70450-TC; 71046-TC-FY; 80053; 81003; 83735; 84443; 84484; 84703; 85025; 87086; 93005; 93010; 99285-25

== ENCOUNTER 2024-02-16 09:02 | Emergency (ER) | payer OTHER ==
[2024-02-16 09:10] VITALS: TEMP 97.9; BMI 31.7
[2024-02-16] MEDS ORDERED: ACETAMINOPHEN 650 MG/20.3 ML ORAL SOLUTION (CUPS) ONE (10:07)
[2024-02-16] MEDS: ACETAMINOPHEN 650 MG/20.3 ML ORAL SOLUTION (CUPS) PO ONE (10:11)
[2024-02-16] MEDS ORDERED: BENZOCAINE/MENTH/CETYLPYRD CL 1 EACH LOZENGE MM PRN (13:23)
[2024-02-16 14:15] VITALS: BP 144/78; PULSE 63; RESP 16
== END 2024-02-16 14:20 | disposition home or self-care (01) ==
LOC: JER 09:02 → JERFT 09:02 → JER 14:20
DX: T18.108A Unspecified foreign body in esophagus causing other injury, initial encounter (principal); J02.9 Acute pharyngitis, unspecified
CPT/HCPCS: 70360-TC-FY; 71046-TC-FY; 99284-25

== ENCOUNTER 2024-03-09 07:03 | Emergency (ER) | payer OTHER ==
[2024-03-09 07:39] VITALS: BP 140/71; PULSE 71; RESP 20; TEMP 98.4; BMI 31.7
[2024-03-09] MEDS ORDERED: KETOROLAC TROMETHAMINE 30 MG/1 ML VIAL ONE (08:55)
[2024-03-09] MEDS: KETOROLAC TROMETHAMINE 30 MG/1 ML VIAL IM ONE (09:00)
== END 2024-03-09 09:29 | disposition home or self-care (01) ==
LOC: JERFT 07:03 → JER 07:03 → JERFT 09:29
PROC: 3E0133Z Introduction of Anti-inflammatory into Subcutaneous Tissue, Percutaneous Approach (ICD-10-PCS; principal; 2024-03-09)
DX: M75.32 Calcific tendinitis of left shoulder (principal); X50.1XXA Overexertion from prolonged static or awkward postures, initial encounter
CPT/HCPCS: 73030-TC-LT-FY; 99284-25